=== PATIENT | female | born 1980 | race Caucasian/White ===

== ENCOUNTER 2024-06-17 08:40 | Outpatient (AMB) | payer BC, SELFPAY ==
--- NOTE | 2024-06-17 09:02 | MHC.OFFVIS ---
Vital Signs 06/17/24 09:10 Height 5 ft 5 in Weight 235 lb 7.259 oz BMI 39.2 Blood Pressure Location Rt brachial Position Sitting Pulse 62 Pulse Source Pulse Oximeter Pulse Oximetry (%) 96 Oxygen Delivery Method Room Air Intake Visit Reasons: Colonoscopy Screening Intake Note: Relevant Flags or Indicators ? Requires Telephone Operator Receptionist? N Leonor presents in office today for a scheduled colonoscopy consult. First time colo. No previous hx. CC; No recent labs, diagnostics, or med orders placed. ? Relevant GI Sx as reported per pt? Fecal abnormalities o?? Discolored? Occasional melena/hematochezia due to hx of hemorrhoids. External only. o?? Constipation ? Hx of any recent surgeries? None Telephone Operator Receptionist Required: No Allergies Seasonal Allergies Allergy (Mild, Verified 06/17/24 09:06) Sneezing HPI HPI Colonoscopy Screening: Details: 43 year old? female here today for pre colonoscopy screening.? Patient was sent to us by her PCP.? This is her first colonoscopy screening.? Patient denies any gastrointestinal symptoms in the past or at present.? However patient does admit to have occasional constipation and blood after having a bowel movement. Patient does report history of hemorrhoids. Denies any personal or family history of gastrointestinal disease, colon polyps, or CRC.? Denies history of difficulty with sedation or anesthesia in the past.? Negative for history of sleep apnea.? Denies any history of cardiac, renal, pulmonary, or hepatic disease.?? No history of infectious? diseases like hepatitis A, B, C, HIV or tuberculosis.? [facility] is not [facility] any [facility] Surgical History (Updated 06/17/24 @ 09:06 by JENIFER Wolff) S/P cholecystectomy Social History (Updated 06/17/24 @ 09:12 by JENIFER Wolff) Alcohol intake: current Comment: 1-2 nights per week. Patient Tobacco Use Status: Never used Tobacco Use of substances other than those prescribed or required for medical reasons: No Substance Use Type: Marijuana Substance Use Frequency: Occasionally Review of Systems Const Denies weight gain and Denies weight loss ENT Reports no additional complaints, Denies dysphagia and Denies odynophagia Card Reports no additional complaints Resp Reports no additional complaints GI Denies abdominal pain, Denies belching, Denies melena, Denies bloating, Denies change in bowel habits, Denies dysphagia, Denies excessive flatus, Denies dyspepsia, Denies heartburn, Denies diarrhea, Denies loose stools, Denies nausea, Denies odynophagia and Denies vomiting Musc Reports no additional complaints Neuro Reports no additional complaints Psych Reports no additional complaints Endo Reports no additional complaints Physical Exam Vital Signs: Last Vital Signs Pulse 62 06/17/24 09:10 Pulse Ox 96 06/17/24 09:10 Oxygen Delivery Method Room Air 06/17/24 09:10 BMI result Body Mass Index 39.2 Const General: healthy appearing, no acute distress and well developed Nutritional Appearance: well nourished Orientation/consciousness: patient oriented x3 Resp Effort & Inspection: normal respiratory effort, able to speak in complete sentences, no tracheal deviation and symmetric chest movement Auscultation: clear to auscultation bilaterally Cardio Rate: regular rate GI Inspection: Yes normal to inspection and No distended Palpation (GI): Soft to palpation, not firm, nontender and No hepatosplenomegaly present Auscultation: normal bowel sounds General: Yes no CVA tenderness Back/Spine/Pelvis Back: no CVA tenderness Skin General skin exam: elasticity normal, turgor normal and dry skin Neuro General: patient oriented x3 Psych Appearance: grossly normal Mental Status: mental status grossly normal Assessment & Plan Assessment & Plan (1) Screen for colon cancer: Code(s): Z12.11 - Encounter for screening for malignant neoplasm of colon Plan Patient denies any cardiac or respiratory symptoms.? Denies any issues with anesthesia in the past.? Denies any history of sleep apnea.? No history infectious diseases in the past or present.? Not on any anticoagulation therapy.? No family or personal history of colon cancer or polyps.? Patient denies melena, hematochezia, unintentional weight loss or ribbon like stools.? Discussed at length the pre-procedure,? prep, diet & medications as well as what to expect prior, during and after the procedure.?? Stressed the importance of good bowel prep.? Recommended the use of Vaseline or Calmoseptine OTC & baby wipes with bowel movements to promote comfort.? ?Patient verbalizes understanding and agrees to plan of care.? She was given the opportunity to ask questions and all questions answered.? We will see her after the procedure Medications: New polyethylene glycol 3350 (Miralax) As directed by gastroenterology department at [facility] 238 grams PO ONCE 238 grams 0RF Z12.11 - Encounter for screening for malignant neoplasm of colon bisacodyl (Dulcolax (bisacodyl)) take 4 tabs at noon the day before your colonoscopy 20 mg (4 x 5 mg) PO ONCE 4 tabs 0RF 1 day Z12.11 - Encounter for screening for malignant neoplasm of colon Coding Level of Care Code New Pt Level 3 (14314) Diagnoses Screen for colon cancer Z12.11 Time Spent (min) 40 Comment 30 minutes spent with patient and additional 10 minutes spent reviewing her records
[2024-06-17 09:10] VITALS: PULSE 62; O2SAT 96; BMI 39.2
== END 2024-06-17 09:53 | disposition home or self-care (01) ==
LOC: HO.HGI 08:41
PROVIDERS: PCP Nurse Practitioner Family; Visit Provider Nurse Practitioner Family
DX: Z01.818 Encounter for other preprocedural examination (principal); Z12.11 Encounter for screening for malignant neoplasm of colon
CPT/HCPCS: S0285

== ENCOUNTER 2024-10-08 09:17 | Day surgery (SDC) | payer BC, SELFPAY ==
--- OUTSIDE RECORDS SUMMARY | 2024-08-28 09:18 | XMS_ITS | Continuity of Care Document ---
Author Organization [facility] Dominick lt Address [address] [place] [address]- Care Team Providers Care Power Barker Operator Name Role Phone Preston KOVACS, Shawna Velasco Primary Care Physician [id number] 08[facility]26[facility] Adult [address] [place] [address]- Encounter Type: Triage Allergies, Adverse Reactions, Alerts No Known Allergies Immunizations Given and Recorded Vaccine Date Status Refusal Reason influenza virus vaccine, inactivated 06/04/23 Give n influenza virus vaccine, inactivated 05/26/22 Brayden rded influenza virus vaccine, inactivated 06/21/21 Brayden rded influenza virus vaccine, inactivated 04/21/20 Brayden rded tetanus/diphtheria/pertussis, acel(Tdap) 03/15/23 Given tetanus/diphtheria/pertussis, acel(Tdap) 1 07/31/12 Given [id number] 12y+ bivalent booster vax 05/26/22 Recorded SARS-CoV-2 (COVID-19) mRNA BNT-162b2 vac 06/10/21 Recorded SARS-CoV-2 (COVID-19) mRNA BNT-162b2 vac 10/08/20 Recorded SARS-CoV-2 (COVID-19) mRNA BNT-162b2 vac 09/17/20 Recorded hepatitis B adult vaccine 2 01/28/13 Recorded hepatitis B adult vaccine 3 09/11/12 Recorded hepatitis B adult vaccine 4 08/04/12 Recorded tetanus-diphtheria toxoids (Td) 5 07/12/12 Recorde d tetanus-diphtheria toxoids (Td) 03/10/07 Given influ virus vac, H1N1, inactive(oldterm) 6 05/31/11 Given FluLaval (oldterm) 7 06/22/10 Given Influenza Virus Vaccine (oldterm) 8 04/12/09 Given 1Result Comment: [08/27/2013] [facility] 2Location History: [facility] [place] employer 3Location History: [facility] employer 4Location History: [facility] employer 5Location History: [facility] employer 6Admin Note: declines 7Admin Note: given at work on 05-23-10 ln 8Admin Note: at work Medications ethinyl estradiol-levonorgestrel biphasic extended cycle oral tablet TAKE 1 TABLET BY MOUTH EVERY DAY Start Date: 04/13/21 Status: Ordered Repeat number: 1 Wegovy (0.5 mg dose) subcutaneous solution = 0.5 mg, Subcutaneous Injection, Every week, for 4 week(s), in the abdomen, thigh, or upper arm, #2 mL, 2 Refills, Acute 10/19/24 3:19:00 PM EDT, 07/27/24 3:19:00 PM EST, Solution, [id number], Partial fill upon patient request if the prescription is for a schedule II opioid drug., 165, cm,06/11/24 9:22:00 EDT, Height, 116, kg, 12/24/22 10:59:00 EDT, Dry Weight Start Date: 07/27/24 Stop Date: 10/19/24 Status: Ordered Quantity: 2.0 Unit: mL Repeat number: 3 ZyrTEC 10 mg oral tablet 1 tablet = 10 mg, By Mouth, Daily, 0 Refills, Maintenance, 02/06/19 11:22:06 AM EDT Start Date: 02/06/19 Status: Ordered Repeat number: 1 Problem List Condition Confirmation Course Effective Dates Status Health St atus Informant Allergic rhinitis Confirmed 01/17/09 Active Anxiety States Confirmed 06/22/10 Active Hemorrhoid Confirmed Active Obese class II Confirmed Active Social History Social History Type Response Smoking Status Never smoker entered on: 07/13/15 Sex Sex Representation Female (finding) Patient Care team information Care Team Personnel Name: Preston KOVACS, Shawna Velasco Position: S PCO Associate Professional Member Role: PCP Address: [address] [place] [phone]- Telecom: Care Team Related Persons Name: RICKI AYLIN Name: SHAWNA FRANKLIN Insurance Providers Guarantor name: TAMARA FRANKLIN Health Plan Information #: 1 Payer: HMO BLUE IN NETWORK Member Number: NA Policy Number: NA Group Number: NA
--- OUTSIDE RECORDS SUMMARY | 2024-08-28 09:18 | XMS_ITS | Continuity of Care Document ---
Author Organization [facility] Domni[facility] lt Address [address] [place] [address]- Care Team Providers Care Rn Transitional Name Role Phone Preston KOVACS, Shawna Velasco Primary Care Physician [id number]24 - 08/22/24 [facility] Adult [address] [place] [address]- Encounter Type: Triage Allergies, Adverse Reactions, Alerts No Known Allergies Immunizations Given and Recorded Vaccine Date Status Refusal Reason influenza virus vaccine, inactivated 06/04/23 Give n influenza virus vaccine, inactivated 05/26/22 Brayden rded influenza virus vaccine, inactivated 06/21/21 Brayden rded influenza virus vaccine, inactivated 04/21/20 Brayden rded tetanus/diphtheria/pertussis, acel(Tdap) 03/15/23 Given tetanus/diphtheria/pertussis, acel(Tdap) 1 07/31/12 Given [id number] 12y+ bivalent booster vax 05/26/22 Recorded SARS-CoV-2 [...] (oldterm) 8 04/12/09 Given 1Result Comment: [08/27/2013] [facility] 2Location History: [facility] [place] employer 3Location History: [facility] employer 4Location History: [facility] employer 5Location History: [facility] employer 6Admin Note: declines 7Admin Note: given [...] PCO Associate Professional Member Role: PCP Address: [address] [place] [phone]- Telecom: Care Team Related Persons Name: RICKI AYLIN Name: SHAWNA FRANKLIN Insurance Providers Guarantor name: TAMARA FRANKLIN Health Plan Information #: 1 Payer: HMO BLUE IN NETWORK Member Number: NA Policy Number: NA Group Number: NA
--- NOTE | 2024-10-07 09:52 | HO.ANESPROP2 ---
Documented by User: Alanna Burciaga NP 10/07/24 09:52 HPI - Anesthesia Eval Consult details Narrative: 43yo F for Colonoscopy [facility] Surgical History Surgical History (Updated 10/08/24 @ 10:57 by Nena Pineda RN) History of surgical removal of ganglion cyst Hx of wisdom tooth extraction S/P cholecystectomy Social History Social History (Updated 06/17/24 @ 09:12 by Sanjay Bartlett [facility]) Are you a primary direct care staffer to a significant other at home: No Do you presently have visiting nurse or other home services: No Alcohol intake: current Comment: 1-2 nights per week. Patient Tobacco Use Status: Never used Tobacco Substance Use Type: Marijuana Meds Allergies Allergy/AdvReac Type Severity Reaction Status Date / Time Seasonal Allergies Allergy Mild Sneezing Verified 10/08/24 10:57 Home Medications ?Medication ?Instructions ?Recorded ?Confirmed ?Last Taken ?Type cetirizine 10 mg tablet (Zyrtec) 10 mg PO DAILY PRN Allergy Symptoms 06/17/24 10/08/24 Unknown History levonorgestrel-ethinyl estradiol 1 tab PO DAILY 06/17/24 10/08/24 Unknown History 0.1 mg-20 mcg tablet psyllium seed (sugar) oral powder 2 tbsp PO DAILY 06/17/24 10/08/24 Unknown History (Metamucil (sugar) oral powder) semaglutide (weight loss) 0.5 0.5 mg subcut QWEEK 10/08/24 10/08/24 09/26/24 History mg/0.5 mL subcutaneous pen injector (Wegovy) Assessment and Plan Assessment Anesthesia Assessment: Chart Reviewed Documented by User: Ryan Duran MD 10/08/24 12:37 [facility] Past Medical History Patient : No Family History Family history of problems with anesthesia: No Surgical History Surgical History (Updated 10/08/24 @ 10:57 by Nena Pineda RN) History of surgical removal of ganglion cyst Hx of wisdom tooth extraction S/P cholecystectomy History of Problems with Anesthesia: No Social History Social History (Updated 06/17/24 @ 09:12 by Sanjay Bartlett [facility]) Are you a primary direct care staffer to a significant other at home: No Do you presently have visiting nurse or other home services: No Alcohol intake: current Comment: 1-2 nights per week. Patient Tobacco Use Status: Never used Tobacco Substance Use Type: Marijuana Meds Allergies Allergy/AdvReac Type Severity Reaction Status Date / Time Seasonal Allergies Allergy Mild Sneezing Verified 10/08/24 10:57 Home Medications ?Medication ?Instructions ?Recorded ?Confirmed ?Last Taken ?Type cetirizine 10 mg tablet (Zyrtec) 10 mg PO DAILY PRN Allergy Symptoms 06/17/24 10/08/24 Unknown History levonorgestrel-ethinyl estradiol 1 tab PO DAILY 06/17/24 10/08/24 Unknown History 0.1 mg-20 mcg tablet psyllium seed (sugar) oral powder 2 tbsp PO DAILY 06/17/24 10/08/24 Unknown History (Metamucil (sugar) oral powder) semaglutide (weight loss) 0.5 0.5 mg subcut QWEEK 10/08/24 10/08/24 09/26/24 History mg/0.5 mL subcutaneous pen injector (Wegovy) Exam Airway Mallampati Class: II TM Dist: <=3cm Neck ROM: Full Loose/Missing/Broken Teeth: No Heart: ok Lungs: ok Assessment and Plan Assessment Anesthesia Assessment: Anesthesia Plan Discussed Final Anesthetic Review Family History of Problems with Anesthesia: No History of Problems with Anesthesia: No NPO: Yes ASA Class: II Final Preanesthetic Review: No Changes in Pt Med Stat, Meds/Allgs Chart Reviewed, Consent Obtained/Reviewed and Anes Risks/Benef Reviewed Patient Risk: Intermediate Procedure Risk: Low Anesthetic Plan Anesthetic Plan: MAC: and Agree w/ Assess. and Plan Disposition: Standard PACU
[2024-10-08] MEDS: Lactated Ringers 1,000 ML 100 ML IVCONT (10:48)
[2024-10-08 10:53] LABS: UPreg QC Valid YES; Urine Pregnancy NEGATIVE (NEGATIVE)
[2024-10-08 10:54] VITALS: BP 133/95; PULSE 72; RESP 18; TEMP 36.7; O2SAT 99; BMI 36.9
--- NOTE | 2024-10-08 11:49 | MHC.SHP ---
Pre-Procedural Eval Section A - 24 Hr Update-Section A only Date of Service: 10/08/24 Section B - Complete if H&P > 30 days Chief Complaint: screening Relevant Family History (Specify if Yes): No Relevant Social History: None Present Medications: see Short Stay Collaborative assessment Medical History: Significant History (high bmi) History of Previous Operations: Relevant previous surgery/procedure and date(s) (cholecystectomy) Allergies: Allergies Allergy/AdvReac Type Severity Reaction Status Date / Time Seasonal Allergies Allergy Mild Sneezing Verified 10/08/24 10:57 Review of Systems Sugical H&P ROS: Negative: Constitution, Cardiovascular, Respiratory, Neurological, Psychiatric, Hem-Onc, Allergic/Immunologic, Gastrointestinal, Genitourinary, Musculoskeletal, Integumentary, Endocrine and Eyes/Ears/Nose/Throat Exam Surgical H&P Exam: Normal: HEENT, Normal: Heart, Normal: Lungs, Normal: Extremities, Normal: Abdomen, Normal: Skin and Normal: Neurological Plan Diagnosis/Plan: Unchanged I have reviewed the history and physical and performed a pertinent physical examination on my patient. No changes have occurred unless specified. Time Spent With Patient Time: Total time managing care of this patient today ____ minutes.
--- NOTE | 2024-10-08 13:00 | P.OPN-COLO_ITS ---
Colonoscopy Operative Note Operative Note Date of Service: 10/08/24 Narrative: Operative Information Procedure Description: Colonoscopy Indication: screening Anesthesia: MAC COLONOSCOPY Instrument: Olympus variable stiffness pediatric scope 190L Colonoscopy Monitoring: Vital signs and clinical assessment, continuous EKG monitoring, Pulse oximetry, Carbon Dioxide monitoring and blood pressure monitoring were done throughout the procedure. Colon withdrawal time was 18 minutes. Procedure: The patient was placed in the left lateral decubitis position and pre-procedure medications were administered. After a digital rectal examination of the ano-rectum, the video colonoscope was inserted into the rectum and advanced through the colon to the cecum/TI. The colonoscope was slowly withdrawn in a retrograde panoramic fashion and the colon mucosa was carefully examined including a retroflexed view of the rectum. Findings and interventions are described below. Procedure Difficulty: easy Findings: Terminal Ileum-normal Cecum:normal Ascending Colon: normal Transverse Colon -normal Descending Colon:normal Sigmoid Colon: 6-8 mm sessile polyp removed with cold snare, in distal sigmoid at about 25 cm from anal verge there was a 12-14 mm sessile polyp which was ra ised with eleview and removed with hot snare with one clip applied Rectum: Retroflexion with small internal hemorrhoids seen, grade I Anorectum - normal Intervention: cold snare, eleview and hot snare for EMR Colon preparation: Woodruff Bowel Preparation Scale Right colon; 2 Transverse colon: 2 Left colon; 2 (0 = Unprepared colon segment with mucosa not seen due to solid stool that cannot be cleared. 1 = Portion of mucosa of the colon segment seen, but other areas of the colon segment not well seen due to staining, residual stool and/or opaque liquid. 2 = Minor amount of residual staining, small fragments of stool and/or opaque liquid, but mucosa of colon segment seen well. 3 = Entire mucosa of colon segment seen well with no residual staining, small fragments of stool or opaque liquid) Impression and Post Procedure Diagnosis: colon polyps x 2 internal hemorrhoids Plan: High fiber diet leaflet Avoid straining at stool, epsom salts and sitz bath, anusol supps or cream Repeat Colonoscopy in 2-3 years due to polyps or earlier if clinically indicated Above findings were reviewed with the patient and relevant handouts were provided if indicated.
[2024-10-08 13:06] VITALS: BP 110/69; PULSE 78; RESP 17; TEMP 36.3; O2SAT 97
[2024-10-08 13:21] VITALS: BP 121/88; PULSE 68; RESP 16; TEMP 36.3; O2SAT 100
== END 2024-10-08 14:02 | disposition home or self-care (01) ==
PROVIDERS: Nurse Practitioner; PCP Nurse Practitioner Family; Visit Provider Internal Medicine Gastroenterology
PROC: 0DJD8ZZ Inspection of Lower Intestinal Tract, Via Natural or Artificial Opening Endoscopic (ICD-10-PCS; CPT 45378; principal; 2024-10-08 12:40)
DX: Z12.11 Encounter for screening for malignant neoplasm of colon (principal); D12.5 Benign neoplasm of sigmoid colon; K64.0 First degree hemorrhoids; K59.00 Constipation, unspecified; J30.2 Other seasonal allergic rhinitis; Z79.899 Other long term (current) drug therapy; Z79.85 Long-term (current) use of injectable non-insulin antidiabetic drugs; Z90.49 Acquired absence of other specified parts of digestive tract
CPT/HCPCS: 45385; 45381; 81025; 88305; J2003; J2704

== ENCOUNTER → 2024-10-08 09:17 | Outpatient (BNV) | payer BC, SELFPAY | PROVIDERS: PCP Nurse Practitioner Family; Visit Provider Internal Medicine Gastroenterology | DX: Z12.11 Encounter for screening for malignant neoplasm of colon (principal); D12.5 Benign neoplasm of sigmoid colon; K64.0 First degree hemorrhoids | CPT/HCPCS: 45381; 45385 ==